=== PATIENT | female | born 1975 | race American Indian/Alaskan Native ===

== ENCOUNTER 2018-03-30 13:29 | Outpatient (CLI) | payer OTHER ==
--- NOTE | 2018-03-31 12:36 | Mammography Report ---
BILATERAL DIGITAL SCREENING MAMMOGRAM with CAD: 03/30/18 13:29:00 CLINICAL: Routine screening. COMPARISON:03/25/16 FINDINGS: The breasts are heterogeneously dense, which may obscure small masses. No mass, architectural distortion or suspicious calcifications. IMPRESSION: No mammographic evidence of malignancy. BI-RADS CATEGORY: 1 - - Negative RECOMMENDATION: Routine mammographic screening in one year. COMMENT: Patient follow-up letters are generated by our [employer] application.
== END 2018-03-30 13:30 | disposition home or self-care (01) ==
LOC: SPVWC 13:29
PROVIDERS: ATTEND Obstetrics & Gynecology
DX: Z12.31 Encounter for screening mammogram for malignant neoplasm of breast (principal)
CPT/HCPCS: 77067

== ENCOUNTER 2021-04-09 09:32 | Outpatient (CLI) | payer OTHER ==
--- NOTE | 2021-04-09 16:33 | Mammography Report ---
DIGITAL SCREENING MAMMOGRAM WITH CAD, 04/09/2021 CLINICAL INFORMATION / INDICATION: Routine screening mammography. SCREENING MAMMOGRAM TECHNIQUE: Digital bilateral 2D mammography was obtained in the craniocaudal and mediolateral obliqu e projections. This examination was interpreted with the benefit of Computer-Aided Detection analysis . COMPARISON: Prior mammogram 03/30/2018 FINDINGS: Breast Density: The breasts are heterogeneously dense, which may obscure small masses. No dominant mass, suspicious calcifications, or architectural distortion in the right breast. There is an asymmetric density seen in the slightly superior left breast, middle depth, seen on MLO v iew only. IMPRESSION: 1. An asymmetric density in the left breast requires further evaluation with spot compression views a nd targeted ultrasound if needed. Follow up recommendation: Special View: Spot BI-RADS Category 0: INCOMPLETE. Needs additional imaging evaluation and/or prior mammograms for martine max. A "normal" or negative report should not discourage follow up or biopsy of a clinically significant f inding. A written summary of these findings will be mailed to the patient. The patient will be entered into a mammography reporting system which will generate a reminder letter for the patient's next appointmen t at the appropriate interval. The [employer] recommends yearly mammograms starting at age 40 and continuing as [place] as a woman is in good health. Breast MRI is recommended for women with an approximate 20-25% or greater lifetime risk of breast cancer, including women with a strong family history of breast or ova godfrey cancer or who have been treated for Hodgkin's disease. Signer Name: Nichelle Bahena MD Signed: 04/09/2021 4:29 PM Workstation Name: [id number]
== END 2021-04-09 09:33 | disposition home or self-care (01) ==
LOC: MAMMO 09:32
PROVIDERS: ATTEND Internal Medicine
DX: Z12.31 Encounter for screening mammogram for malignant neoplasm of breast (principal)
CPT/HCPCS: 77067